=== PATIENT | male | born 1980 | race Caucasian/White ===

== ENCOUNTER 2018-08-11 21:35 | Emergency (ER) | payer BC ==
[~2018-08-11] VITALS: Ht 172.7 cm; Wt 95.5 kg
[~2018-08-11 21:35] MED LIST: CELEXA; DESYREL
[2018-08-11 21:39] VITALS: TEMP 97.1
[2018-08-11] MEDS ORDERED: CELEXA10 MG PO (21:42)
[2018-08-11] MEDS ORDERED: NORCO 325 MG-51 TAB PO (22:39)
[2018-08-11] MEDS ORDERED: CRUTCHES MC (22:41)
[2018-08-11 22:48] VITALS: BP 117/77; PULSE 92
== END 2018-08-11 23:00 | disposition home or self-care (01) ==
LOC: COL.ER 21:35
DX: S82.142A Displaced bicondylar fracture of left tibia, initial encounter for closed fracture (principal); W19.XXXA Unspecified fall, initial encounter; X50.0XXA Overexertion from strenuous movement or load, initial encounter; F32.9 Major depressive disorder, single episode, unspecified
CPT/HCPCS: L1846